=== PATIENT | male | born 1945 | race Caucasian/White ===

== ENCOUNTER → 2018-02-19 | Outpatient (CLI) | payer MEDICARE, OTHER ==
[~2018-02-19] MED LIST: GLUCOPHAGE1000 MG PO; KEFLEX500 MG PO; LISINOPRIL-HCT1 EACH PO; NAPROSYN500 MG PO
== END ==
LOC: M.RAD 01-31 15:47 → M.ULTRA 02-08 10:30 → M.RAD 09:00
DX: M81.0 Age-related osteoporosis without current pathological fracture (principal); E11.9 Type 2 diabetes mellitus without complications; E03.9 Hypothyroidism, unspecified; E55.9 Vitamin D deficiency, unspecified; R10.9 Unspecified abdominal pain; F17.200 Nicotine dependence, unspecified, uncomplicated; I10 Essential (primary) hypertension

== ENCOUNTER → 2020-02-25 | Outpatient (CLI) | payer MEDICARE | LOC: M.RAD 14:29 | PROVIDERS: ATTEND Internal Medicine | DX: N63.10 Unspecified lump in the right breast, unspecified quadrant (principal); N64.89 Other specified disorders of breast ==

== ENCOUNTER → 2020-08-26 | Outpatient (CLI) | payer OTHER | LOC: M.RAD 11:10 | PROVIDERS: ATTEND Internal Medicine | DX: R91.1 Solitary pulmonary nodule (principal); M47.814 Spondylosis without myelopathy or radiculopathy, thoracic region; M41.84 Other forms of scoliosis, thoracic region ==

== ENCOUNTER → 2020-09-07 | Outpatient (CLI) | payer OTHER | LOC: M.CT 10:27 | PROVIDERS: ATTEND Internal Medicine | DX: R91.1 Solitary pulmonary nodule (principal) ==

== ENCOUNTER → 2021-04-06 | Outpatient (CLI) | payer OTHER | LOC: M.ULTRA 10:54 | PROVIDERS: ATTEND Internal Medicine | DX: N18.31 Chronic kidney disease, stage 3a (principal) ==

== ENCOUNTER → 2021-06-21 | Outpatient (CLI) | payer OTHER | LOC: M.ULTRA 09:51 | PROVIDERS: ATTEND Internal Medicine | DX: R74.8 Abnormal levels of other serum enzymes (principal) ==